=== PATIENT | male | born 1975 | race Caucasian/White ===

== ENCOUNTER 2018-11-10 01:20 | Emergency (ER) | payer MEDICAID | END 2018-11-10 05:10 | disposition home or self-care (01) | LOC: FTE 01:20 | DX: S06.0X0A Concussion without loss of consciousness, initial encounter (principal); T14.8XXA Other injury of unspecified body region, initial encounter; R07.9 Chest pain, unspecified; Y04.2XXA Assault by strike against or bumped into by another person, initial encounter; Z21 Asymptomatic human immunodeficiency virus [HIV] infection status | CPT/HCPCS: 70450; 70486; 71046; 72125; 93005; 99285-25 ==